=== PATIENT | female | born 1990 | race Caucasian/White ===

== ENCOUNTER 2017-01-27 05:19 | Emergency (ER) | payer BC ==
[2017-01-27 05:31] VITALS: BMI 22.8
[2017-01-27] MEDS ORDERED: ACETAMINOPHEN 1000 MG/100 ML VIAL (NON FORMULARY) IVPB ONE (05:47)
[2017-01-27] MEDS ORDERED: SODIUM CHLORIDE 0.9% 500 ML INFUS.BAG IV ONE (05:47)
[2017-01-27] MEDS ORDERED: CLINDAMYCIN 600MG PREMIX IVPB 50 ML IVPB ONE (05:47)
--- NOTE | 2017-01-27 05:48 | PDOC ---
[id number]: No Limitations - History of Present Illness Initial Comments: 01/27/17 05:55 The patient is a 26 year old female with a significant past medical history of wisdom tooth extraction yesterday, presenting to the Emergency Department with fever, chills, and tooth pain. The patients family reports that she had one wisdom tooth extracted yesterday morning but that the patient has not been compliant with her antibiotics and pain medication due to fasting for lent. The patients family reports that she is instructed to take her medication with meals, and since she is fasting, has only taken her antibiotic once or twice since surgery. She is instructed to take the antibiotics three times per day. The patients family reports that she woke up in the middle of the night with a fever, and possible hallucinations. The patient is responsive but cannot speak due to the pain. The patient denies nausea, vomiting, and diarrhea. Patient denies cough. Patient denies dizziness, blurry vision, and double vision. Dentist: Dr. Naif Jarquin PCP: Dr. Rea <Danni Bacon - Last Filed: 01/27/17 05:55> <Heather Raines - Last Filed: 02/03/17 20:31> - General Chief Complaint: SIRS, Suspected/Possible Stated Complaint: FEVER CHILLS Time Seen by Provider: 01/27/17 05:37 Past History <Danni Bacon - Last Filed: 01/27/17 05:55> - Immunization History Immunization Up to Date: Yes - Psycho/Social/Smoking Cessation Hx Anxiety: No Suicidal Ideation: No Smoking History: Never smoked Have you smoked in the past 12 months: No Information on smoking cessation initiated: No Hx Alcohol Use: No Drug/Substance Use Hx: No Substance Use Type: None <Heather Raines - Last Filed: 02/03/17 20:31> - Past Medical History Allergies/Adverse Reactions: Allergies Allergy/AdvReac Type Severity Reaction Status Date / Time No Known Allergies Allergy Verified 01/27/17 05:28 Home Medications: Ambulatory Orders Clindamycin [Cleocin -] 300 mg PO Q6HPO #28 capsule 01/27/17 Review of Systems - Review of Systems Able to Perform ROS?: Yes Comments:: 01/27/17 05:57 GENERAL/CONSTITUTIONAL: + fever, + chills. No weakness. HEAD, EYES, EARS, NOSE AND THROAT: + tooth pain. No change in vision. No ear pain or discharge. No sore throat. CARDIOVASCULAR: No chest pain or shortness of breath. RESPIRATORY: No cough, wheezing, or hemoptysis. GASTROINTESTINAL: No nausea, vomiting, diarrhea or constipation. GENITOURINARY: No dysuria, frequency, or change in urination. MUSCULOSKELETAL: No joint or muscle swelling or pain. No neck or back pain. SKIN: No rash NEUROLOGIC: No headache, vertigo, loss of consciousness, or change in strength/ sensation. ENDOCRINE: No increased thirst. No abnormal weight change. HEMATOLOGIC/LYMPHATIC: No anemia, easy bleeding, or history of blood clots. ALLERGIC/IMMUNOLOGIC: No hives or skin allergy. <Danni Bacon - Last Filed: 01/27/17 05:55> *Physical Exam - Vital Signs Last Vital Signs Temp Pulse Resp BP Pulse Ox 99.9 F H 102 H 18 102/66 98 01/27/17 05:28 01/27/17 05:28 01/27/17 05:28 01/27/17 05:28 01/27/17 05:28 - Physical Exam Comments: 01/27/17 05:58 GENERAL: Low grade fever, Awake, alert, and fully oriented, in no acute distress HEAD: Exquisite right jaw pain but no swelling. No gum abscess, and no swelling of the jaw. Right lower wisdom tooth extracted, no active bleeding. EYES: PERRLA, EOMI, sclera anicteric, conjunctiva clear ENT: Auricles normal inspection, hearing grossly normal, nares patent, oropharynx clear without exudates. Moist mucosa NECK: Normal ROM, supple, no lymphadenopathy, JVD, or masses LUNGS: Breath sounds equal, clear to auscultation bilaterally. No wheezes, and no crackles HEART: Regular rate and rhythm, normal S1 and S2, no murmurs, rubs or gallops ABDOMEN: Soft, nontender, gassy bowel sounds. No guarding, no rebound. No masses EXTREMITIES: Normal range of motion, no edema. No clubbing or cyanosis. No cords, erythema, or tenderness NEUROLOGICAL: Cranial nerves II through XII grossly intact. Normal speech, normal gait SKIN: Warm, Dry, normal turgor, no rashes or lesions noted. <Danni Bacon - Last Filed: 01/27/17 05:55> - Vital Signs Last Vital Signs Temp Pulse Resp BP Pulse Ox 99.9 F H 102 H 18 102/66 98 01/27/17 05:28 01/27/17 05:28 01/27/17 05:28 01/27/17 05:28 01/27/17 05:28 <Heather Raines - Last Filed: 02/03/17 20:31> ED Treatment Course - LABORATORY CBC & Chemistry Diagram: 01/27/17 06:30 01/27/17 06:30 <Heather Raines - Last Filed: 02/03/17 20:31> Medical Decision Making - Medical Decision Making 01/27/17 06:55 Pt had her right lower wisdom tooth pulled 2 days ago. She took 3 or 4 amoxil and a couple motrin. She is observing Lent, and has not been taking meds appropriately. She has pain and low grade fever. Family says that she was in pain and "hallucinating" A+Ox3 here. Pt will have labs and lactic acid and blood cx; she will be given clinda and IV NSS. 01/27/17 07:19 Pt will be signed out to the day ER doc; he may d/c patient on clinda 300 QID x 7 days; f/u with PMD migel, or with dentist Naif Jarquin <Heather Raines - Last Filed: 02/03/17 20:31> *DC/Admit/Observation/Transfer - Attestations Scribe Attestion: 01/27/17 06:00 Documentation prepared by Danni Bacon, acting as bilingual medical receptionist for Heather Raines MD. <Danni Bacon - Last Filed: 01/27/17 05:55> <Heather Raines - Last Filed: 02/03/17 20:31> Diagnosis at time of Disposition: Pain, dental, Fever - Discharge Dispostion Disposition: HOME Condition at time of disposition: Stable - Prescriptions Prescriptions: Clindamycin [Cleocin -] 300 mg PO Q6HPO #28 capsule - Patient Instructions Printed Discharge Instructions: DI on Tooth Extraction, DI for Fever (Symptom) -- Adult
[2017-01-27] MEDS ORDERED: ACETAMINOPHEN INJECTION 100 ML IVPB ONE (06:21)
[2017-01-27] MEDS ORDERED: CLINDAMYCIN PHOSPHATE 600 MG/4 ML VIAL ONE (06:22)
[2017-01-27 06:56] LABS: BASOPHIL 0.2 % (0-2.0); EOSINOPHIL 0.1 % (0-4.5); MCH 28.3 pg (25.7-33.7); MCHC 34.2 g/dl (32.0-36.0); MEAN CELL VOLUME 82.8 fl (80-96); MEAN PLT VOLUME 8.1 fl (7.5-11.1); NEUTROPHILS 85.4 % (42.8-82.8); PLATELET COUNT 173 K/MM3 (134-434); RDW 13.6 % (11.6-15.6); WHITE BLOOD COUNT 4.5 K/mm3 (4.0-10.0)
[2017-01-27 07:26] LABS: ALBUMIN 4.1 g/dl (3.4-5.0); ALK PHOS 50 U/L (45-117); ANION GAP 10 (8-16); BILIRUBIN,TOTAL 2.4 mg/dL (0.2-1.0); CO2 24 mmol/L (21-32); CREATININE 0.5 mg/dL (0.55-1.02); GLUCOSE,RANDOM 86 mg/dL (74-106); SGOT/AST 17 U/L (15-37); SGPT/ALT 27 U/L (12-78); TOT PROT 7.5 g/dl (6.4-8.2)
[2017-01-27] MEDS ORDERED: ACETAMINOPHEN 325 MG TABLET (FP) PO ONE (07:36)
[2017-01-27] MEDS ORDERED: ACETAMINOPHEN 325 MG TABLET (FP) ONE (07:37)
--- NOTE | 2017-01-27 07:57 | PDOC ---
*Physical Exam - Vital Signs Last Vital Signs Temp Pulse Resp BP Pulse Ox 99.9 F H 102 H 18 102/66 99 01/27/17 05:28 01/27/17 05:28 01/27/17 05:28 01/27/17 05:28 01/27/17 07:00 - Physical Exam Comments: 01/27/17 07:59 Patient endorsed to me by Dr. Raines. Patient is a 26-year-old female who presented with fever and chills after it was into the extraction. Patient has been taking amoxicillin inappropriately. In the ER, patient is awake and alert, nontoxic-appearing, resting comfortably. On my evaluation, patient is alert, oriented 3 (Greek translation provided). There is no evidence of meningismus. There is no evidence of localized or distant spread of the infection. Patient had received 600 mg of clindamycin. Will discharge with clinic. With dental follow-up. ED Treatment Course - LABORATORY CBC & Chemistry Diagram: 01/27/17 06:30 01/27/17 06:30 - ADDITIONAL ORDERS Additional order review: Laboratory Results 01/27/17 01/27/17 06:30 06:30 Sodium 139 Potassium 3.7 Chloride 105 Carbon Dioxide 24 Anion Gap 10 BUN 7 D Creatinine 0.5 L Creat Clearance w eGFR > 60 Random Glucose 86 Lactic Acid 0.517 Calcium 9.0 Total Bilirubin 2.4 H D AST 17 ALT 27 D Alkaline Phosphatase 50 D Total Protein 7.5 Albumin 4.1 D 01/27/17 06:30 RBC 4.38 D MCV 82.8 MCHC 34.2 RDW 13.6 MPV 8.1 D Neutrophils % 85.4 H D Lymphocytes % 8.4 D Monocytes % 5.9 Eosinophils % 0.1 Basophils % 0.2 - Medications Given in the ED: ED Medications Discontinued Medications Generic Name Dose Route Start Last Admin Trade Name Freq PRN Reason Stop Dose Admin Acetaminophen 1,000 mg 01/27/17 05:47 01/27/17 06:55 Ofirmev Injection - IVPB 01/27/17 05:48 Not Given ONCE ONE Acetaminophen 650 mg 01/27/17 07:36 01/27/17 07:41 Tylenol - PO 01/27/17 07:37 650 mg NOW ONE Administration Clindamycin Phosphate 50 mls @ 100 mls/hr 01/27/17 05:47 01/27/17 06:45 Cleocin 600 Mg Premix Ivpb - IVPB 01/27/17 06:16 100 mls/hr ONCE ONE Administration Sodium Chloride 1,000 ml 01/27/17 05:47 01/27/17 06:55 Normal Saline - IV 01/27/17 05:48 1,000 ml ONCE ONE Administration *DC/Admit/Observation/Transfer Diagnosis at time of Disposition: Toothache Fever Qualifiers: Fever type: unspecified Qualified Code(s): R50.9 - Fever, unspecified - Discharge Dispostion Disposition: HOME Condition at time of disposition: Stable - Patient Instructions Printed Discharge Instructions: DI for Fever (Symptom) -- Adult, DI on Tooth Extraction
[2017-01-27 08:02] VITALS: BP 108/54; PULSE 88; TEMP 98.1
[2017-01-27] MEDS ORDERED: KETOROLAC TROMETHAMINE 30 MG/1 ML VIAL IM ONE (08:07)
[2017-01-27] MEDS ORDERED: KETOROLAC TROMETHAMINE 30 MG/1 ML VIAL ONE (08:08)
== END 2017-01-27 08:10 | disposition home or self-care (01) ==
LOC: JER 05:19
PROC: 3E0233Z Introduction of Anti-inflammatory into Muscle, Percutaneous Approach (ICD-10-PCS; principal; 2017-01-27)
PROC: 3E03329 Introduction of Other Anti-infective into Peripheral Vein, Percutaneous Approach (ICD-10-PCS; 2017-01-27)
DX: K08.89 Other specified disorders of teeth and supporting structures (principal)
CPT/HCPCS: 36415; 80053; 83605; 85025; 87040; 99283-25

== ENCOUNTER → 2017-08-23 | Day surgery (SDC) | payer BC | END | disposition home or self-care (01) | LOC: JRADIR 09:09 | PROVIDERS: ATTEND Obstetrics & Gynecology | PROC: BU12YZZ Fluoroscopy of Bilateral Fallopian Tubes using Other Contrast (ICD-10-PCS; principal; 2017-08-23) | DX: N97.9 Female infertility, unspecified (principal) | CPT/HCPCS: 58340; 74740-TC; 76000-TC; 84703; Q9967 ==